=== PATIENT | female | born 1965 | race Two or more races ===

== ENCOUNTER → 2022-10-16 09:29 | Outpatient (CLI) | payer OTHER | END | disposition home or self-care (01) | LOC: LAB 09:29 | PROVIDERS: ATTEND Orthopaedic Surgery | DX: E55.9 Vitamin D deficiency, unspecified (principal); M85.9 Disorder of bone density and structure, unspecified; E56.1 Deficiency of vitamin K; E21.3 Hyperparathyroidism, unspecified; E88.9 Metabolic disorder, unspecified; M81.8 Other osteoporosis without current pathological fracture; D64.9 Anemia, unspecified; D68.8 Other specified coagulation defects; N39.0 Urinary tract infection, site not specified; A49.02 Methicillin resistant Staphylococcus aureus infection, unspecified site ==

== ENCOUNTER 2022-12-25 08:21 | Outpatient (CLI) | payer OTHER | END 2022-12-25 08:23 | disposition home or self-care (01) | LOC: LAB 08:21 | PROVIDERS: ATTEND Orthopaedic Surgery | DX: I49.9 Cardiac arrhythmia, unspecified (principal); I10 Essential (primary) hypertension; D64.89 Other specified anemias; E88.89 Other specified metabolic disorders; D68.8 Other specified coagulation defects; N39.0 Urinary tract infection, site not specified; A49.02 Methicillin resistant Staphylococcus aureus infection, unspecified site; E11.9 Type 2 diabetes mellitus without complications; Z76.89 Persons encountering health services in other specified circumstances ==

== ENCOUNTER 2023-01-09 14:15 | Outpatient (CLI) | payer OTHER | END 2023-01-09 14:22 | disposition home or self-care (01) | LOC: RAD 14:15 | PROVIDERS: ATTEND Orthopaedic Surgery | DX: M25.571 Pain in right ankle and joints of right foot (principal); M25.572 Pain in left ankle and joints of left foot; M79.671 Pain in right foot; M79.672 Pain in left foot ==

== ENCOUNTER 2023-01-11 10:15 | Inpatient (IN) | payer OTHER ==
[~2023-01-11] VITALS: Ht 167.6 cm; Wt 72.6 kg
[2023-01-11] MEDS ORDERED: LEVO-T75 MCG PO (12:29)
[2023-01-11] MEDS ORDERED: CLONAZEPAM1 MG PO (12:29)
[2023-01-11] MEDS ORDERED: CATAFLAN PO (12:30)
[2023-01-11] MEDS ORDERED: PREDNISONE PO (12:30)
[2023-01-11] MEDS ORDERED: VITAMIN D PO (12:31)
[2023-01-11] MEDS ORDERED: SERTRA PO (12:32)
[2023-01-16] MEDS ORDERED: ALENDRONATE SOD70 MG (08:09)
[2023-01-16] MEDS ORDERED: TRULICITY0.75 MG/0. (08:09)
[2023-01-16] MEDS ORDERED: CELECOXIB200 MG (08:09)
[2023-01-16] MEDS ORDERED: GABAPENTIN100 M2 (08:09)
[2023-01-16] MEDS ORDERED: ORENCIA CL125 MG/1 M (08:09)
[2023-01-16] MEDS ORDERED: SERTRALINE HCL50 MG (08:09)
[2023-01-16] MEDS ORDERED: FENOFIBRATE160 MG (08:10)
[2023-01-16] MEDS ORDERED: HUMULIN 70100 UNIT/2 (08:10)
[2023-01-16] MEDS ORDERED: DICLOFENAC POTA50 MG (08:11)
[2023-01-16] MEDS ORDERED: PREDNISONE10 M2 (08:12)
[2023-01-16] MEDS ORDERED: VITAMIN D310 MC5 (08:12)
[2023-01-17] MEDS ORDERED: CEFADROXIL500 MG PO (08:28)
== END 2023-01-17 13:58 | disposition home or self-care (01) | DRG 494 ==
LOC: SURH 01-16 05:10 → O/R 01-16 05:10 → SURH 01-16 07:00
PROVIDERS: ADMIT Orthopaedic Surgery; ATTEND Orthopaedic Surgery
PROC: 0LBS0ZZ Excision of Right Ankle Tendon, Open Approach (ICD-10-PCS; 2023-01-16)
PROC: 0QUG0JZ Supplement Right Tibia with Synthetic Substitute, Open Approach (ICD-10-PCS; 2023-01-16)
PROC: 0SGF0JZ Fusion of Right Ankle Joint with Synthetic Substitute, Open Approach (ICD-10-PCS; principal; 2023-01-16 07:00)
DX: M19.071 Primary osteoarthritis, right ankle and foot (principal); M65.871 Other synovitis and tenosynovitis, right ankle and foot; Z20.822 Contact with and (suspected) exposure to COVID-19

== ENCOUNTER 2023-03-15 12:14 | Outpatient (CLI) | payer OTHER ==
[~2023-03-15 12:14] MED LIST: ALENDRONATE SOD70 MG; CATAFLAN PO; CEFADROXIL500 MG PO; CELECOXIB200 MG; CLONAZEPAM1 MG PO; DICLOFENAC POTA50 MG; FENOFIBRATE160 MG; GABAPENTIN100 M2; HUMULIN 70100 UNIT/2; LEVO-T75 MCG PO; ORENCIA CL125 MG/1 M; PREDNISONE PO; PREDNISONE10 M2; SERTRA PO; SERTRALINE HCL50 MG; TRULICITY0.75 MG/0.; VITAMIN D PO; VITAMIN D310 MC5
== END 2023-03-15 12:23 | disposition home or self-care (01) ==
LOC: RAD 12:14
PROVIDERS: ATTEND Orthopaedic Surgery
DX: Z98.1 Arthrodesis status (principal)

== ENCOUNTER 2023-04-19 13:55 | Outpatient (CLI) | payer OTHER | END 2023-04-19 13:56 | disposition home or self-care (01) | LOC: RAD 13:55 | PROVIDERS: ATTEND Orthopaedic Surgery | DX: Z88.1 Allergy status to other antibiotic agents (principal) ==

== ENCOUNTER 2023-05-31 14:51 | Outpatient (CLI) | payer OTHER | END 2023-05-31 14:57 | disposition home or self-care (01) | LOC: RAD 14:51 | PROVIDERS: ATTEND Orthopaedic Surgery | DX: Z98.1 Arthrodesis status (principal) ==

== ENCOUNTER 2023-06-25 08:35 | Outpatient (CLI) | payer OTHER | END 2023-06-25 08:43 | disposition home or self-care (01) | LOC: RAD 08:35 | PROVIDERS: ATTEND Orthopaedic Surgery | DX: Z98.1 Arthrodesis status (principal) ==

== ENCOUNTER 2023-09-05 10:53 | Outpatient (CLI) | payer OTHER | END 2023-09-05 10:59 | disposition home or self-care (01) | LOC: RAD 10:53 | PROVIDERS: ATTEND Orthopaedic Surgery | DX: Z98.1 Arthrodesis status (principal); M25.561 Pain in right knee ==

== ENCOUNTER → 2023-10-02 08:48 | Outpatient (CLI) | payer OTHER ==
[2023-10-02 09:56] LABS: HEMATOCRIT 34.8 % (36.0-45.00); HEMOGLOBIN 11.2 g/dL (12.0-15.00); MEAN CELL VOLUME 81.4 fL (80.00-100.00); MEAN CORPUSCULAR HEMOGLOBIN 26.2 pg (27.00-32.0); MEAN CORPUSCULAR HGB CONC 32.2 g/dl (32.0-36.0); PLATELET COUNT 446 K/uL (150-450); RED BLOOD COUNT 4.27 M/uL (4.00-6.00); RED CELL DISTRIBUTION WIDTH 18.1 % (11.5-14.5)
[2023-10-02 10:18] LABS: COL EPI 100 SECONDS (82-175)
[2023-10-02 10:24] LABS: ALBUMIN 3.1 gm/dL (3.4-5.0); BILIRUBIN TOTAL 0.18 mg/dL (0.3-1.2); CALCIUM 9.3 mg/dL (8.5-10.1); CREATININE SERUM 0.67 mg/dL (0.55-1.02); GFR 90.4; GLOBULINA 4.6 G/DL (2.4-3.5); TOTAL PROTEIN 7.7 gm/dL (6.4-8.2)
[2023-10-02 10:32] LABS: INR < 0.93; PARTIAL THROMBOPLASTIN TIME 34.9 SECONDS (22.0-34.0); PROTHROMBIN TIME 9.8 SECONDS (9.0-11.5)
[2023-10-02 10:45] LABS: URINE APPEARANCE Clear; URINE BILIRRUBIN Negative (NEGATIVE); URINE BLOOD Negative; URINE COLOR Yellow; URINE GLUCOSE Negative (NEGATIVE); URINE LEUKOCYTE Negative; URINE NITRATE Negative; URINE PROTEIN Negative (NEGATIVE)
[2023-10-02 10:50] LABS: URINE BACTERIA 817.6 uL (0.0-1933); URINE EPITHELIAL CELLS 34.5 uL (0.0-38.8); URINE RBC 2.5 uL (0.0-20.8); URINE WBC 18.8 uL (0.0-23.2)
== END | disposition home or self-care (01) ==
LOC: LAB 08:48
PROVIDERS: ATTEND Orthopaedic Surgery
DX: D64.9 Anemia, unspecified (principal); E88.9 Metabolic disorder, unspecified; N39.0 Urinary tract infection, site not specified; Z20.822 Contact with and (suspected) exposure to COVID-19

== ENCOUNTER 2023-10-10 12:30 | Outpatient (CLI) | payer OTHER | END 2023-10-10 14:32 | disposition home or self-care (01) | LOC: EKG 12:30 | PROVIDERS: ATTEND Orthopaedic Surgery | DX: I10 Essential (primary) hypertension (principal) ==